=== PATIENT | male | born 1960 | race Caucasian/White ===

== ENCOUNTER 2019-10-25 11:26 | Emergency (ER) | payer OTHER, SELFPAY ==
[2019-10-25 11:59] VITALS: BP 167/78; PULSE 94; RESP 20; TEMP 37.1; O2SAT 100
--- NOTE | 2019-10-25 13:19 | ED.URI ---
HPI - URI/Sore Throat General Chief Complaint: Upper Respiratory Infection Stated Complaint: sore throat/ear pn Source: patient and RN notes reviewed Mode of arrival: ambulatory Limitations: no limitations History of Present Illness HPI Narrative: Patient is a 59-year-old male who presents complaining of sinus pain and pressure, sore throat, bilateral ear pain and congestion x1 week. Patient was seen in ED at [facility] 3 days ago and given a prescription for Augmentin and to follow-up with ENT. Patient reports taking medication but continues to feel poorly. Patient here for reevaluation. MD elicited complaint: nasal congestion and sinus pain Related Data Home Medications Medication Instructions Recorded Confirmed amoxicillin-pot clavulanate 1 tablet PO Q12H 10/25/19 10/25/19 [Augmentin] Allergies Allergy/AdvReac Type Severity Reaction Status Date / Time No Known Allergies Allergy Verified 10/25/19 11:59 Review of Systems Review of Systems: Narrative: CONSTITUTIONAL: Denies fever, chills, or sweats. EYES: Denies visual changes, redness, or discharge. ENT: Reports rhinorrhea, congestion, sore throat, and bilateral otalgia. CARDIOVASCULAR: Denies chest pain, palpitations, or edema. RESPIRATORY: Denies cough or dyspnea. GASTROINTESTINAL: Denies abdominal pain, nausea, vomiting, or diarrhea. GENITOURINARY: Denies dysuria or hematuria. SKIN: Denies rash or itching. MUSCULOSKELETAL: Denies back pain, joint pain, or myalgia. NEUROLOGIC: Denies headache, numbness, dizziness, or weakness. PSYCHIATRIC: Denies anxiety or depression. PMFSH Past Medical History Medical History Sinusitis Surgical History Surgical History No pertinent past surgical history Social History Social History (Updated 10/25/19 @ 13:23 by SARAI Melissa) Smoking status: Current every day smoker Alcohol intake: current Alcohol use details: occasionally Substance use: never Exam Narrative: Exam Narrative: GENERAL: Well-appearing, well-nourished, and in no acute distress. HEAD: Normocephalic, atraumatic. EYES: EOMI. No redness or drainage. Conjunctiva are normal. ENT: Mucous membranes pink and moist. Nares erythematous, congested and clear rhinorrhea noted. TMs cloudy and full bilaterally. Throat erythema and edema. Uvula midline. NECK: AROM. Supple. No lymphadenopathy. CHEST: No respiratory distress. Clear to auscultation. HEART: Regular rate and rhythm. No murmur appreciated. Normal peripheral pulses. SKIN: Warm, dry, no rash. NEURO: No focal deficits. Alert and oriented x3. Gait steady. PSYCH: Normal affect. No signs of depression or anxiety. Course Vital Signs Vital signs: Vital Signs Temperature 37.1 C 10/25/19 11:59 Pulse Rate 94 10/25/19 11:59 Respiratory Rate 10/25/19 11:59 Blood Pressure 167/78 H 10/25/19 11:59 Pulse Oximetry 100 10/25/19 11:59 Temperature 37.1 C 10/25/19 11:59 Pulse Rate 94 10/25/19 11:59 Respiratory Rate 10/25/19 11:59 Blood Pressure 167/78 H 10/25/19 11:59 Pulse Oximetry 100 10/25/19 11:59 MDM - URI/Sore Throat MDM Narrative Medical decision making narrative: Discussed with patient plan of care. Patient most likely continues have a sinus infection as well as possible pharyngitis. Discussed with patient to continue on with the Augmentin as prescribed. Patient to follow-up with PCP in 3 to 5 days if symptoms persist. Patient is stable for discharge home with outpatient follow-up care as needed. Differential Diagnosis Differential diagnosis: Likely sinusitis and pharyngitis Critical Care Time Critical Care Time Critical Care Time: No Discharge Plan Discharge Clinical Impression: Sinusitis, Pharyngitis Patient Disposition: Home, Self-Care Condition: Stable Instructions: Pharyngitis (ED), Allergies (ED) Robin
== END 2019-10-25 13:38 | disposition home or self-care (01) ==
PROVIDERS: Emergency Provider Nurse Practitioner
DX: J32.9 Chronic sinusitis, unspecified (principal); J02.9 Acute pharyngitis, unspecified; F17.200 Nicotine dependence, unspecified, uncomplicated
CPT/HCPCS: 99203; G0463

== ENCOUNTER 2021-12-25 13:10 | Emergency (ER) | payer OTHER, SELFPAY ==
[2021-12-25 13:27] VITALS: BP 166/82; PULSE 87; RESP 18; TEMP 36.7; O2SAT 100
--- NOTE | 2021-12-25 13:28 | ED.ABDPAIN ---
HPI - Abdominal Pain General Chief Complaint: Abdominal Pain Stated Complaint: Chest Discomfort Time Seen by Provider: 12/25/21 13:28 Source: patient Mode of arrival: ambulatory Limitations: no limitations History of Present Illness HPI narrative: Zhao Frost is a 61 yo male with PMH of GERD who comes to express care c/o heartburn that started a week or 2 ago. He describes that it was starts to have gas and pain after he eats, releases gas his stomach improves but if he does not he starts to have some bloating and pain. Breath chest pain, he has not have a primary care physician and has not had a lab work for either his overall health Related Data Allergies Allergy/AdvReac Type Severity Reaction Status Date / Time adhesive AdvReac Mild Rash Verified 12/25/21 14:16 Review of Systems Review of Systems: CONSTITUTIONAL: Denies fever, chills, sweats. EYES: Denies visual changes, redness, discharge. ENT: Denies rhinorrhea, congestion, sore throat, otalgia. CARDIOVASCULAR: Denies chest pain, palpitations, edema. RESPIRATORY: Denies dyspnea, wheezing, cough GASTROINTESTINAL: Denies abdominal pain, nausea, vomiting, diarrhea. Complaining of heartburn GENITOURINARY: Denies dysuria, hematuria, abnormal discharge SKIN: Denies rash or itching. NEUROLOGIC: Denies numbness, or focal weakness. PSYCHIATRIC: Denies anxiety or depression. PMFSH Past Medical History Medical History Heartburn Sinusitis Surgical History Surgical History No pertinent past surgical history Social History Social History Smoking status: Current every day smoker Alcohol intake: current Alcohol use details: occasionally Substance use: never Comments At time of signature, I agree with nursing past medical, surgical, social and family history. There is no relevant family history pertinent to the presenting complaint. Exam Narrative: GENERAL: This is a well-nourished, well-developed patient, in mild distress.Pt is anxious HEAD: normocephalic, atraumatic. EYES: Sclera clear/white. Vision is grossly intact. EARS: External ears normal, Hearing grossly intact. NOSE: External nose normal without nasal discharge, nares without redness, no rhinorrhea. THROAT: Mucous membranes moist, NECK: Neck supple, non-tender CARDIOVASCULAR: Regular rate and rhythm without murmurs, gallops, or rubs. RESPIRATORY: Clear to auscultation. Breath sounds equal bilaterally. No wheezes, rales, or rhonchi. GASTROINTESTINAL: Abdomen soft, SKIN: warm, intact with no suspicious lesions or rash, good texture and turgor. NEURO: awake, alert, and oriented to person, place and time. There were no obvious focal neurologic abnormalities. Steady gait EXTREMITIES: Normal range of motion. BACK: Nontender without deformity Course Course Emergency Course: Patient is here for GI upset and states he thinks he is GERD as he has had in the past Started on Nexium tried to refer for follow up with a new pcp Level of Care: Express Care Visit Vital Signs Vital signs: Vital Signs Temperature 98.1 F 12/25/21 13:27 Pulse Rate 87 12/25/21 13:27 Respiratory Rate 18 12/25/21 13:27 Blood Pressure 166/82 H 12/25/21 13:27 Pulse Oximetry 100 12/25/21 13:27 Temperature 98.1 F 12/25/21 13:27 Pulse Rate 87 12/25/21 13:27 Respiratory Rate 18 12/25/21 13:27 Blood Pressure 166/82 H 12/25/21 13:27 Pulse Oximetry 100 12/25/21 13:27 MDM - Abdominal Pain Differential Diagnosis Differential diagnosis: Likely abdominal pain, gastroenteritis and other Critical Care Time Critical Care Time Critical Care Time: No Discharge Plan Discharge Clinical Impression: Gastric reflux Patient Disposition: Home, Self-Care Condition: Stable Instructions: Antibiotic Form, GERD (Gastroesophag
== END 2021-12-25 13:54 | disposition home or self-care (01) ==
PROVIDERS: Emergency Provider Nurse Practitioner
DX: K21.9 Gastro-esophageal reflux disease without esophagitis (principal); F17.200 Nicotine dependence, unspecified, uncomplicated
CPT/HCPCS: 99213; G0463